=== PATIENT | female | born 1965 | race Caucasian/White ===

== ENCOUNTER → 2023-05-23 12:36 | Outpatient (REF) | payer BC, SELFPAY | LOC: RAD 12:36 | PROVIDERS: ATTENDING PHYSICIAN Nurse Practitioner Adult Health | DX: R10.12 Left upper quadrant pain (principal) | CPT/HCPCS: 74177; Q9967 ==

== ENCOUNTER → 2023-05-30 12:29 | Outpatient (REF) | payer BC, SELFPAY | LOC: WDC 12:29 | PROVIDERS: ATTENDING PHYSICIAN Family Medicine | DX: Z12.31 Encounter for screening mammogram for malignant neoplasm of breast (principal) | CPT/HCPCS: 77063; 77067 ==

== ENCOUNTER 2024-04-02 06:25 | Day surgery (SDC) | payer BC, SELFPAY | END 2024-04-02 12:28 | disposition home or self-care (01) | LOC: GI 06:25 | PROVIDERS: ATTENDING PHYSICIAN Student in an Organized Health Care Education/Training Program | DX: Z12.11 Encounter for screening for malignant neoplasm of colon (principal); D12.2 Benign neoplasm of ascending colon; D12.4 Benign neoplasm of descending colon | CPT/HCPCS: 45385; 88305 ==

== ENCOUNTER → 2024-06-04 12:18 | Outpatient (REF) | payer BC, SELFPAY | LOC: WDC 12:18 | PROVIDERS: ATTENDING PHYSICIAN Family Medicine | DX: Z12.31 Encounter for screening mammogram for malignant neoplasm of breast (principal) | CPT/HCPCS: 77063; 77067 ==

== ENCOUNTER 2025-01-05 06:26 | Outpatient (RCR) | payer BC, SELFPAY | END 2025-01-05 23:59 | disposition home or self-care (01) | LOC: RPT 06:26 | PROVIDERS: ATTENDING PHYSICIAN Physical Medicine & Rehabilitation Sports Medicine; FAMILY PHYSICIAN Family Medicine | DX: M25.561 Pain in right knee (principal); M25.562 Pain in left knee; M22.2X1 Patellofemoral disorders, right knee; M22.2X2 Patellofemoral disorders, left knee; M17.0 Bilateral primary osteoarthritis of knee; S83.281D Other tear of lateral meniscus, current injury, right knee, subsequent encounter; Z73.6 Limitation of activities due to disability; M62.81 Muscle weakness (generalized) | CPT/HCPCS: 97110; 97140; 97162 ==

== ENCOUNTER 2025-02-02 06:36 | Outpatient (RCR) | payer BC, SELFPAY | END 2025-02-02 23:59 | disposition home or self-care (01) | LOC: RPT 06:36 | PROVIDERS: ATTENDING PHYSICIAN Physical Medicine & Rehabilitation Sports Medicine; FAMILY PHYSICIAN Family Medicine | DX: M25.561 Pain in right knee (principal); M25.562 Pain in left knee; M22.2X1 Patellofemoral disorders, right knee; M22.2X2 Patellofemoral disorders, left knee; M17.0 Bilateral primary osteoarthritis of knee; S83.281D Other tear of lateral meniscus, current injury, right knee, subsequent encounter; Z73.6 Limitation of activities due to disability; M62.81 Muscle weakness (generalized) | CPT/HCPCS: 97110; 97112; 97140; 97530 ==